=== PATIENT | female | born 2000 | race Caucasian/White ===

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

== ENCOUNTER 2021-04-09 09:50 | Inpatient (IN) ==
[2021-04-09] MEDS ORDERED: Penicillin G Potassium IV 5,000,000 UNITS in NS 0.9% 100 ml BAG 100 ML IVPB ONE (09:57)
[2021-04-09] MEDS ORDERED: Lactated Ringers 1000 ml BAG 1,000 ML IV ONE (10:36)
[2021-04-09] MEDS ORDERED: Lactated Ringers 1000 ml BAG 1,000 ML IV SCH (11:00)
[2021-04-09] MEDS ORDERED: Oxytocin in LR 20 UNITS/1,000 ML BAG IVPB SCH (11:00)
[2021-04-09 11:52] LABS: Urine Benzodiazepine Screen None Detected (None Detect); Urine Cannabinoids Screen None Detected (None Detect); Urine Opiates Screen None Detected (None Detect)
[2021-04-09 12:10] LABS: ABS Eosinophils 0.1 10^3/ul (0-0.6); ABS Lymphocytes 1.1 10^3/ul (1.0-4.8); ABS Monocytes 0.4 10^3/ul (0-0.8); ABS Neutrophils 6.3 10^3/ul (1.5-7.7); Eosinophil % 1.2 %; Hematocrit 32 % (35-47); Hemoglobin 10.9 g/dL (12.0-16.0); Lymphocyte % 14.4 %; Mean Corpuscular HGB Conc 34 g/dL (31-36); Mean Corpuscular Hemoglobin 28 pg (27-31); Mean Corpuscular Volume 83 fL (80-97); Mean Platelet Volume 8.7 fL (7.4-10.4); Platelet Count 226 10^3/uL (150-450); Red Blood Count 3.89 10^6 /uL (3.70-4.87); Red Cell Distribution Width 14 % (10-15); White Blood Count 7.9 10^3/uL (3.5-10.8)
[2021-04-09] MEDS ORDERED: Penicillin G Potassium IV 3,000,000 UNITS in NS 0.9% 100 ml BAG 100 ML IVPB SCH (13:00)
[2021-04-09] MEDS ORDERED: Dinoprostone 10 MG VAG.SUPP VAGINAL ONE (21:38)
[2021-04-10] MEDS ORDERED: Penicillin G Potassium IV 3,000,000 UNITS in NS 0.9% 100 ML IVPB SCH (13:00)
[2021-04-10] MEDS ORDERED: OBEPIDURAL 250 ML EPIDURAL ONE (14:11)
[2021-04-10] MEDS ORDERED: Lactated Ringers 1000 ml BAG 1,000 ML IV ONE (14:49)
[2021-04-10] MEDS ORDERED: Sodium Citrate/Citric Acid LIQ 15 ML UDC PO PRN (14:49)
[2021-04-10] MEDS ORDERED: Phenylephrine 40 mcg/mL 10mL (400mcg) SYRINGE IV PUSH PRN ×2 (14:49)
[2021-04-10] MEDS ORDERED: EPHEDrine (Pressors) 50 MG/ML VIAL IV PUSH PRN ×2 (14:49)
[2021-04-10] MEDS ORDERED: Lactated Ringers 1000 ml BAG 500 ML IV PRN ×2 (14:49)
[2021-04-10] MEDS ORDERED: Lactated Ringers 1000 ml BAG 1,000 ML IV SCH ×2 (15:00→18:00)
[2021-04-10] MEDS ORDERED: OBEPIDURAL 250 ML EPIDURAL SCH (15:00)
[2021-04-10] MEDS ORDERED: Oxytocin in LR 20 UNITS/1,000 ML BAG IVPB ONE (16:20)
[2021-04-10 16:41] LABS: Urine Appearance Clear; Urine Bilirubin Negative (Negative); Urine Blood 2+ (Negative); Urine Color Yellow; Urine Glucose Negative (Negative); Urine Ketones Negative (Negative); Urine Nitrite Negative (Negative); Urine Protein Negative (Negative); Urine Specific Gravity 1.025 (1.002-1.030); Urine Urobilinogen Negative (Negative)
[2021-04-10] MEDS ORDERED: Dibucaine 1% OINT 28.35 GM TUBE ONE (17:28)
[2021-04-10] MEDS ORDERED: Witch Hazel PAD JAR ONE (17:28)
[2021-04-10] MEDS ORDERED: Glycerin ADULT 2.4 gm SUPP PR PRN (17:47)
[2021-04-10] MEDS ORDERED: Witch Hazel PAD JAR TOPICAL PRN (17:47)
[2021-04-10] MEDS ORDERED: Varicella Virus Vaccine Live 0.5 ML VIAL SUBCUT ONE (17:47)
[2021-04-10] MEDS ORDERED: Oxytocin in LR 20 UNITS/1,000 ML BAG IVPB SCH (18:00)
[2021-04-10] MEDS ORDERED: Lidocaine 1% VIAL 10 MG/ML VIAL ONE (18:59)
[2021-04-10] MEDS ORDERED: Lidocaine 1% MPF 5 ML VIAL ONE (19:00)
[2021-04-10 19:21] LABS: Urine Red Blood Cell 3+(>10/hpf) (Absent)
[2021-04-10 19:22] LABS: Urine Squamous Epithelial Cell Present (Absent); Urine White Blood Cell 1+(6-10/hpf) (Absent)
[2021-04-11] MEDS: Dibucaine 1% OINT 28.35 GM TUBE PR PRN ×2 (02:12→09:22)
[2021-04-11 06:52] LABS: ABS Basophils 0.1 10^3/ul (0-0.2); ABS Eosinophils 0.1 10^3/ul (0-0.6); ABS Lymphocytes 1.4 10^3/ul (1.0-4.8); ABS Monocytes 0.6 10^3/ul (0-0.8); ABS Neutrophils 5.6 10^3/ul (1.5-7.7); Eosinophil % 1.1 %; Hematocrit 28 % (35-47); Hemoglobin 9.4 g/dL (12.0-16.0); Lymphocyte % 18.1 %; Mean Corpuscular HGB Conc 34 g/dL (31-36); Mean Corpuscular Hemoglobin 28 pg (27-31); Mean Corpuscular Volume 83 fL (80-97); Mean Platelet Volume 8.7 fL (7.4-10.4); Platelet Count 198 10^3/uL (150-450); Red Blood Count 3.37 10^6 /uL (3.70-4.87); Red Cell Distribution Width 14 % (10-15); White Blood Count 7.8 10^3/uL (3.5-10.8)
[2021-04-12] MEDS ORDERED: Flu vaccine *QUAD* 2021-22* 0.5 ML SYRINGE IM ONE (09:20)
[2021-04-12] MEDS ORDERED: Dibucaine 1% OINT 28.35 GM TUBE ONE (10:29)
[2021-04-12] MEDS: Dibucaine 1% OINT 28.35 GM TUBE PR PRN ×2 (10:37→15:18)
[2021-04-12 14:12] VITALS: BP 136/82
== END 2021-04-12 15:56 | disposition home or self-care (01) | DRG 560 ==
LOC: MCHOBOUT 10:08 → MCHOB 10:09
PROVIDERS: ADMIT Midwife; ATTEND Midwife

== ENCOUNTER 2022-07-15 01:46 | Inpatient (IN) ==
[2022-07-15] MEDS ORDERED: Lactated Ringers 1000 ml BAG 1,000 ML IV ONE ×2 (09:05→20:41)
[2022-07-15] MEDS ORDERED: Buffered Lidocaine 1% SYRIN 1 ml INTRADERM ONE (09:05)
[2022-07-15] MEDS ORDERED: Oxytocin in LR 20,000 MILLI.UNIT/1,000 ML BAG IV SCH ×2 (09:45→23:00)
[2022-07-15] MEDS ORDERED: Lactated Ringers 1000 ml BAG 1,000 ML IV SCH ×2 (10:00→21:00)
[2022-07-15 10:03] LABS: ABS Eosinophils 0.1 10^3/ul (0-0.6); ABS Lymphocytes 1.3 10^3/ul (1.0-4.8); ABS Monocytes 0.4 10^3/ul (0-0.8); ABS Neutrophils 4.9 10^3/ul (1.5-7.7); Eosinophil % 1.8 %; Hematocrit 30 % (35-47); Hemoglobin 9.6 g/dL (12.0-16.0); Lymphocyte % 18.4 %; Mean Corpuscular HGB Conc 32 g/dL (31-36); Mean Corpuscular Hemoglobin 25 pg (27-31); Mean Corpuscular Volume 78 fL (80-97); Mean Platelet Volume 8.2 fL (7.4-10.4); Platelet Count 193 10^3/uL (150-450); Red Cell Distribution Width 18 % (10-15); White Blood Count 6.8 10^3/uL (3.5-10.8)
[2022-07-15 10:25] LABS: Urine Benzodiazepine Screen None Detected (None Detect); Urine Cannabinoids Screen None Detected (None Detect); Urine Opiates Screen None Detected (None Detect)
[2022-07-15] MEDS ORDERED: Lidocaine 2% w/ EPI 1:200,000 MPF 20 ML SDV VIAL ONE (18:26)
[2022-07-15] MEDS ORDERED: OBEPIDURAL (200 ML) 200 ML EPIDURAL ONE (18:26)
[2022-07-15 20:05] LABS: Urine Appearance Cloudy; Urine Bilirubin Negative (Negative); Urine Blood 2+ (Negative); Urine Color Yellow; Urine Glucose Negative (Negative); Urine Ketones Negative (Negative); Urine Nitrite Negative (Negative); Urine Protein Negative (Negative); Urine Specific Gravity 1.015 (1.002-1.030); Urine Urobilinogen Negative (Negative)
[2022-07-15 20:11] LABS: Urine Bacteria Absent (Absent); Urine Red Blood Cell 3+(>10/hpf) (Absent); Urine Squamous Epithelial Cell Present (Absent); Urine White Blood Cell 1+(6-10/hpf) (Absent)
[2022-07-15] MEDS ORDERED: Phenylephrine 40 mcg/mL 10mL (400mcg) SYRINGE IV PUSH PRN ×2 (20:41)
[2022-07-15] MEDS ORDERED: Lactated Ringers 1000 ml BAG 500 ML IV PRN ×2 (20:41)
[2022-07-15] MEDS ORDERED: Sodium Citrate/Citric Acid LIQ 15 ML UDC PO PRN (20:41)
[2022-07-15] MEDS ORDERED: OBEPIDURAL (200 ML) 200 ML EPIDURAL SCH (21:00)
[2022-07-15] MEDS ORDERED: Dibucaine 1% OINT 28.35 GM TUBE PR PRN (22:48)
[2022-07-15] MEDS ORDERED: Glycerin ADULT 2.4 gm SUPP PR PRN (22:48)
[2022-07-15] MEDS ORDERED: Witch Hazel PAD JAR TOPICAL PRN (22:48)
[2022-07-16] MEDS ORDERED: Lidocaine 1% VIAL 10 MG/ML VIAL 30 ML ONE (02:00)
[2022-07-17 07:57] VITALS: BP 112/75
== END 2022-07-17 10:45 | disposition home or self-care (01) | DRG 560 ==
LOC: MCHOBOUT 01:46 → MCHOB 07:55
PROVIDERS: ADMIT Midwife; ATTEND Midwife

== ENCOUNTER 2024-05-21 22:43 | Inpatient (IN) ==
[2024-05-22] MEDS: Nalbuphine 10 MG/ML 1 ML VIAL IV PRN (00:46)
[2024-05-22] MEDS: Nalbuphine 10 MG/ML 1 ML VIAL IM PRN (01:01)
[2024-05-22] MEDS ORDERED: Lidocaine 1% VIAL 10 MG/ML 30 ML VIAL INJ PRN (08:36)
[2024-05-22 09:20] LABS: Urine Benzodiazepine Screen None Detected (None Detect); Urine Cannabinoids Screen None Detected (None Detect); Urine Opiates Screen None Detected (None Detect)
[2024-05-22] MEDS: Buffered Lidocaine 1% SYRIN 1 ml INTRADERM ONE (09:46)
[2024-05-22] MEDS: Lactated Ringers 1000 ml BAG 1,000 ML IV ONE ×2 (11:50→19:15)
[2024-05-22] MEDS: Oxytocin in NS 30,000 MILLI.UNIT/500 ML BAG IV SCH ×2 (11:51→23:57)
[2024-05-22 12:29] LABS: ABS Eosinophils 0.1 10^3/uL (0.0-0.5); ABS Monocytes 0.4 10^3/uL (0.0-0.9); ABS Neutrophils 5.1 10^3/uL (1.5-7.6); ABS Nucleated RBC 0.01 10^3/ul; Eosinophil % 1.4 %; Hematocrit 29.9 % (35-45); Hemoglobin 10.2 g/dL (11.5-14.3); Lymphocyte % 15.3 %; Mean Corpuscular Hemoglobin 27.2 pg (27-33); Mean Corpuscular Volume 79.9 fL (80-97); Mean Platelet Volume 8.8 fL (7.5-11.2); Nucleated Red Blood Cells % 0.1 %/100WBC (0.0-0.8); Platelet Count 193 10^3/uL (150-450); Red Blood Count 3.74 10^6/uL (3.63-4.92); Red Cell Distribution Width 15.6 % (12-17); White Blood Count 6.6 10^3/uL (3.8-11.8)
[2024-05-22] MEDS: Lactated Ringers 1000 ml BAG 1,000 ML IV SCH ×2 (12:33→19:58)
[2024-05-22] MEDS ORDERED: OBEPIDURAL (200 ML) 200 ML EPIDURAL ONE (19:21)
[2024-05-22] MEDS ORDERED: Phenylephrine 40 mcg/mL 10mL (400mcg) SYRINGE IV PUSH PRN ×2 (19:47)
[2024-05-22] MEDS ORDERED: Sodium Citrate/Citric Acid LIQ 15 ML UDC PO PRN (19:47)
[2024-05-22] MEDS: OBEPIDURAL (200 ML) 200 ML EPIDURAL SCH (19:58)
[2024-05-22 21:37] LABS: Urine Appearance Turbid; Urine Bilirubin Negative (Negative); Urine Blood Trace (Negative); Urine Color Light-Yellow; Urine Glucose Negative (Negative); Urine Ketones Negative (Negative); Urine Nitrite Negative (Negative); Urine Protein Negative (Negative); Urine Specific Gravity 1.014 (1.002-1.030); Urine Urobilinogen Negative (Negative); Urine pH 7.5 (5.0-8.0)
[2024-05-22 21:53] LABS: Urine Bacteria 1+ /HPF (Absent); Urine Red Blood Cell 3+(>10/hpf) /HPF (0-Trace); Urine White Blood Cell 2+(11-20/hpf) /HPF (0-Trace)
[2024-05-22] MEDS ORDERED: Lactated Ringers 1000 ml BAG 1,000 ML IV SCH (23:00)
[2024-05-22] MEDS: Witch Hazel PAD JAR TOPICAL PRN (23:51)
[2024-05-22] MEDS: Dibucaine 1% OINT 28.35 GM TUBE PR PRN (23:51)
[2024-05-23] MEDS: Lidocaine 1.5% EPI 1:200,000 30 ML SDV ONE (06:17)
[2024-05-23 06:30] LABS: ABS Eosinophils 0.1 10^3/uL (0.0-0.5); ABS Lymphocytes 1.3 10^3/uL (1.0-4.8); ABS Monocytes 0.5 10^3/uL (0.0-0.9); ABS Neutrophils 5.8 10^3/uL (1.5-7.6); Eosinophil % 1.2 %; Hematocrit 29.3 % (35-45); Hemoglobin 9.7 g/dL (11.5-14.3); Lymphocyte % 16.4 %; Mean Corpuscular Hemoglobin 26.5 pg (27-33); Mean Corpuscular Hgb Conc 33.2 g/dL (31-36); Mean Corpuscular Volume 79.6 fL (80-97); Mean Platelet Volume 8.3 fL (7.5-11.2); Platelet Count 178 10^3/uL (150-450); Red Blood Count 3.68 10^6/uL (3.63-4.92); White Blood Count 7.7 10^3/uL (3.8-11.8)
[2024-05-23] MEDS: Oxytocin in NS 30,000 MILLI.UNIT/500 ML BAG IV SCH (19:07)
[2024-05-23] MEDS: Varicella Virus Vaccine Live 0.5 ML VIAL SUBCUT ONE (20:54)
[2024-05-24 07:52] VITALS: BP 114/76
== END 2024-05-24 10:56 | disposition home or self-care (01) | DRG 560 ==
LOC: MCHOBOUT 22:43 → MCHOB 05-22 08:38
PROVIDERS: ADMIT Midwife; ATTEND Midwife